=== PATIENT | male | born 1950 | race African-American/Black ===

== ENCOUNTER 2019-05-13 05:23 | Day surgery (SDC) | payer OTHER ==
[2019-05-13] MEDS ORDERED: ZINC OXIDE 20 %30 GM TOPICAL (06:17)
[2019-05-13] MEDS ORDERED: HUMULIN 70100 UNIT/1 SC (06:18)
[2019-05-13] MEDS ORDERED: COSOPT EACH EYE (06:19)
[2019-05-13] MEDS ORDERED: ZYRTEC10 MG (06:20)
[2019-05-13] MEDS ORDERED: FLOMAX0.4 MG PO (06:21)
[2019-05-13] MEDS ORDERED: FUROSEMIDE40 MG (06:21)
[2019-05-13] MEDS ORDERED: GLUCERNA 1 CAL237 ML (06:22)
[2019-05-13] MEDS ORDERED: HUMULIN 70100 UNIT/1 SQ (06:23)
[2019-05-13] MEDS ORDERED: SYMBICORT 16010.2 GM INH (06:24)
[2019-05-13] MEDS ORDERED: PLAVIX75 MG (06:24)
[2019-05-13] MEDS ORDERED: FERROUS SULFAT325 MG PO (06:24)
[2019-05-13] MEDS ORDERED: XALATAN 0.0052.5 ML EACH EYE (06:25)
[2019-05-13] MEDS ORDERED: SENNA LAXATIVE8.6 MG (06:25)
[2019-05-13] MEDS ORDERED: FOLIC ACID1 MG PO (06:26)
[2019-05-13] MEDS ORDERED: ISOSORBIDE MONO30 M1 PO (06:26)
[2019-05-13] MEDS ORDERED: XOPENEX HFA15 GM INH (06:27)
[2019-05-13] MEDS ORDERED: LIPITOR10 MG PO (06:27)
[2019-05-13] MEDS ORDERED: PREDNISOLONE 110 ML EACH EYE (06:29)
[2019-05-13 06:49] LABS: HEMATOCRIT 30.6 % (42.0-54.0); HEMOGLOBIN 9.7 g/dL (13.5-17.5); MCH 26.9 pg (26.0-34.0); MCHC 31.7 g/dL (31.0-37.0); MEAN PLATELET VOLUME 8.4 fL (7.4-10.4); RBC 3.6 10x6/uL (4.20-6.10); RDW 16.2 % (11.5-14.5); WBC 10.9 10x3/uL (4.8-10.8)
[2019-05-13 06:55] LABS: ANION GAP 13.2 mmol/L (8-16); CALCIUM 8.5 mg/dL (8.5-10.1); CARBON DIOXIDE 22.7 mmol/L (21.0-32.0); CREATININE - SERUM 1.9 mg/dL (0.6-1.3); POTASSIUM - SERUM 3.9 mmol/L (3.5-5.1)
--- NOTE | 2019-05-13 07:09 | NUR ---
0707 MEDICINE SHEET SENT WITH PT FROM [facility] BUT TIMES ARE NOT DOCUMENTED ON LAST DOSE. PT IS A POOR HISTORIAN ON TIMES OF MEDICATIONS.
[2019-05-13 07:29] VITALS: BMI 35.2
--- NOTE | 2019-05-13 11:07 | HP ---
PATIENT: AMANDA ODOM MEDICAL RECORD: [id number] ACCOUNT: [id number] LOCATION:[facility] : 46 ADMISSION DATE: 05/13/19 PCP: No PCP HISTORY AND PHYSICAL EXAMINATION PRINCIPAL DIAGNOSES: 1. Melena. 2. Anemia. 3. Guaiac positive stools. 4. High risk for problems due to multiple medical problems. HISTORY OF PRESENT ILLNESS: This procedure is being performed in the hospital due to multiple medical problems. The patient has been on Plavix. It was held for several days and then the patient received a dose of Plavix yesterday. HOME MEDICATIONS: Please see the nursing list. ALLERGIES: Please see the nursing list. PHYSICAL EXAMINATION: GENERAL: The patient does not appear acutely ill. He does appear chronically ill. He keeps falling asleep during the examination. EARS: External ears appear normal. EYES: Extraocular movements are intact. NECK: Trachea midline. CHEST: No intercostal retractions. PULMONARY: Nonlabored. IMPRESSION: 1. Anemia 2. Heme-positive stools. 3. Melena. 4. Partially anticoagulated on Plavix. PLAN: Colonoscopy and possible polypectomy. TRANSINT:[id number] Voice Confirmation ID: [id number] DOCUMENT ID: [id number] SUZANNE SOOD MD at 1107 CC: [id number] DICTATION DATE: 05/13/19 1016 HYDRO TECHNICIAN: 05/13/19 1050 REG [facility] [address] [place] [address]
--- NOTE | 2019-05-13 12:15 | OP ---
PATIENT NAME: AMANDA ODOM MEDICAL RECORD: [id number] :46 LOCATION:D.OPS ADMISSION DATE: SURGEON: MATT SOOD MD DATE OF OPERATION: 05/13/2019 PREOPERATIVE DIAGNOSES: 1. Anemia. 2. Melena. 3. Heme-positive stools. POSTOPERATIVE DIAGNOSES: 1. Anemia. 2. Melena. 3. Heme-positive stools. 4. Five colorectal polyps, which appear to be adenomatous. 5. Number of much smaller polyps, which were ablated with the argon plasma vice president of brand management. PROCEDURES: 1. Total colonoscopy to cecum. 2. Hot biopsy forceps polypectomies times 5. 3. Endoscopic ablation of 15 small polyps throughout the rectum, with the argon plasma vice president of brand management. SURGEON: Matt Sood MD [id number] ADMINISTRATOR: None. BLOOD LOSS: Minimal. ANESTHESIA: IV sedation. COMPLICATIONS: None. This procedure is being performed in the hospital as the patient is ASA 4. The endoscopic findings certainly could account for his anemia, heme-positive stools, and melena. ENDOSCOPIC COURSE: The patient was conveyed to endoscopy suite electively on 05/13/2019. IV sedation was induced by the anesthesia staff. The patient was placed in the [place] position. A digital rectal examination was performed. A colonoscope was inserted through the anus. It was easily advanced to the cecum. The prep was adequate. Upon withdrawal, I irrigated and aspirated extensively. The pullback was greater than 25-minute pullback. The ileum appeared normal. I dragged the folds. A combination of normal imaging and narrow band imaging were utilized. Five hot biopsy forceps polypectomies were performed. The 2 most worrisome polyps was a bilobed polyp, which was a 1.4 cm polyp and was removed through the hot biopsy forceps polypectomy technique. This was a semi-pedunculated polyp. The most worrisome polyp was a 2.8 cm polyp, which was a villous carpeting type polyp and was located within the rectum. Multiple hot biopsy forceps were performed. Some additional polypoid tissue was ablated with the argon plasma vice president of brand management. There were a number of minute polyps, all less than 8 mm and these were present throughout the rectum and these were ablated with the argon plasma vice president of brand management utilizing the right colon setting in the forced mode. A retroflexed view was obtained in the rectum. I then unretroflexed the OPERATIVE REPORT [id number] AMANAD ODOM scope and removed it under direct vision. If followup is needed, I can see the patient out at the clinic on my GI day. Plan for his next colonoscopy to take place in 1 year, April of 2020. TRANSINT:[id number] Voice Confirmation ID: [id number] DOCUMENT ID: [id number] MATT SOOD MD at 1215 CC: ILENE MUSA MD [id number] DICTATION DATE: 05/13/19 1115 SHIPPER/RECEIVER: 05/13/19 1203 [address] [id number] [place] [address]
--- NOTE | 2019-05-13 16:14 | NUR ---
1210 IV DC'D. CATHETER INTACT. NO BLEEDING AT SITE. BANDAID APPLIED.
--- NOTE | 2019-05-13 16:17 | NUR ---
1200 DR. SOOD'S OFFICE NOTIFIED THAT PT IS TO HAVE A F/U APPOINTMENT IN 2-3 WEEKS. THEY WILL NOTIFY [facility] OF THAT APPT.
== END 2019-05-13 12:34 | disposition home or self-care (01) ==
LOC: D.OPS 05:23
PROVIDERS: Anesthesiology; ATTEND Surgery
DX: K63.5 Polyp of colon (principal); D12.4 Benign neoplasm of descending colon; K92.1 Melena; D64.9 Anemia, unspecified; Z01.812 Encounter for preprocedural laboratory examination

== ENCOUNTER 2019-06-09 07:42 | Outpatient (CLI) | payer OTHER ==
[~2019-06-09] VITALS: Ht 175.3 cm; Wt 109.1 kg
[~2019-06-09 07:42] MED LIST: COSOPT EACH EYE; FERROUS SULFAT325 MG PO; FLOMAX0.4 MG PO; FOLIC ACID1 MG PO; FUROSEMIDE40 MG; GLUCERNA 1 CAL237 ML; HUMULIN 70100 UNIT/1 SC; HUMULIN 70100 UNIT/1 SQ; ISOSORBIDE MONO30 M1 PO; LIPITOR10 MG PO; PLAVIX75 MG; PREDNISOLONE 110 ML EACH EYE; SENNA LAXATIVE8.6 MG; SYMBICORT 16010.2 GM INH; XALATAN 0.0052.5 ML EACH EYE; XOPENEX HFA15 GM INH; ZINC OXIDE 20 %30 GM TOPICAL; ZYRTEC10 MG
[2019-06-09 09:27] VITALS: BP 173/84; Ht 175.3 cm; Wt 109.1 kg
[2019-06-09 09:31] LABS: BASOPHILS 0.2 % (0-2); EOSINOPHILS 9.3 % (0-7); HEMATOCRIT 32.9 % (42.0-54.0); HEMOGLOBIN 10.2 g/dL (13.5-17.5); IMMATURE GRANULOCYTES 0.2 % (0-5); LYMPHOCYTES 23.1 % (15-50); MCH 27.1 pg (26.0-34.0); MCV 87.5 fL (80.0-100.0); MEAN PLATELET VOLUME 8.6 fL (7.4-10.4); MONOCYTES 12.8 % (2-11); NEUTROPHILS 54.4 % (40-80); PLATELET COUNT 196 10x3/uL (130-400); RBC 3.76 10x6/uL (4.20-6.10); RDW 16.4 % (11.5-14.5); WBC 5.4 10x3/uL (4.8-10.8)
[2019-06-09 09:41] LABS: APTT 30.4 SECONDS (22.8-39.4); INR 1.14 (0.85-1.17); PROTIME 14.1 SECONDS (11.6-15.0)
[2019-06-09 09:43] LABS: ANION GAP 8.6 mmol/L (8-16); CALCIUM 8.5 mg/dL (8.5-10.1); CARBON DIOXIDE 29.6 mmol/L (21.0-32.0); CREATININE - SERUM 1.6 mg/dL (0.6-1.3); POTASSIUM - SERUM 4.2 mmol/L (3.5-5.1)
--- NOTE | 2019-06-09 12:38 | NUR ---
1225 SEE POST PROCEDURE CHECKLIST FOR VITAL SIGN TRENDS
--- NOTE | 2019-06-09 12:50 | NUR ---
1245 URNINAL EMPTIED OF 1000CC YELLOW URINE. HOB AT 40 DEGREES. DENIES DYSPNEA. GUARDS AT SIDE.
--- NOTE | 2019-06-09 13:16 | NUR ---
1310 DENIES PROBLEMS, DRESSING CDI. QUIET IN ROOM.
--- NOTE | 2019-06-09 13:43 | NUR ---
1330 RENAL ADA DIET SERVED DENIES DYSPNEA 1342 XRAY HERE FOR CXR.
== END 2019-06-09 15:18 ==
LOC: D.SP 07:42 → D.CT 10:00 → D.SP 10:00
PROVIDERS: Radiology Diagnostic Radiology; ATTEND Surgery
DX: R91.8 Other nonspecific abnormal finding of lung field (principal); Z01.812 Encounter for preprocedural laboratory examination